=== PATIENT | male | born 1945 | race Caucasian/White ===

== ENCOUNTER 2019-04-16 06:54 | Day surgery (SDC) | payer MEDICARE ==
[2019-04-16] MEDS ORDERED: LIDOCAINE 2% MDV (20MG/ML) 20ML VIAL IV ONE (06:55)
[2019-04-16] MEDS ORDERED: PROPOFOL 10 MG/ML VIAL IV ONE (06:55)
--- NOTE | 2019-04-19 12:30 | Operative Note ---
DATE OF SERVICE: 04/16/2019. DATE OF SURGERY: 04/16/2019. REQUESTING PROVIDER: Isaiah Winslow DO. SURGEON: Fran Becerra MD. OPERATION: COLONOSCOPY. INDICATION FOR PROCEDURE: This is a 73-year-old male with history of colon polyps. Last colonoscopy was about 6 years ago, who presented for surveillance colonoscopy. POSTOPERATIVE DIAGNOSES: 1. A 3 mm size rectal polyp that was removed by cold biopsy forceps. 2. Otherwise normal colon. SEDATION: Sedation is per Anesthesia. Pulse oximetry was monitored throughout the duration of the procedure to maintain O2 saturation of 90% or greater. Supplemental oxygen was administered via nasal cannula. Cardiac and vital signs were monitored throughout the duration of the procedure and were stable. PROCEDURE: The procedure of colonoscopy, risks and alternatives to the procedure, including the risks of bleeding and perforation, among others, were explained to the patient, who voiced understanding and agreed to have the procedure done. Physical examination was performed, and the patient was found stable for sedation. The patient was then placed in the left lateral position and sedation was initiated. Digital rectal exam was performed and showed small external hemorrhoids but no palpable rectal masses. A lubricated Olympus PCF1 80AL colonoscope was then inserted into the rectum and under direct visualization was advanced to the cecum without difficulty. The ileocecal valve and appendiceal orifice were identified and photographed. The colonic mucosa was carefully examined upon introduction of the colonoscope. There were no lesions noted. The colonoscope was then withdrawn very carefully, re-examining the colonic mucosal surfaces. The bowel preparation was good. There were no lesions noted. In the rectum, however, was a 3 mm size polyp that was removed by cold biopsy forceps. Retroflexion maneuver revealed no lesions. The colonoscope was then withdrawn and the procedure was terminated. The patient tolerated the procedure well without immediate complications. He remained in stable vital signs and was transferred to the recovery room. PLAN AND RECOMMENDATIONS: 1. Patient should be on a high fiber diet. 2. He is to have a repeat colonoscopy for surveillance in 5 years. Thank you for allowing me to participate in the care of your patient. JAMIL
== END 2019-04-16 08:50 | disposition home or self-care (01) ==
LOC: HOP 06:54
PROVIDERS: ATTEND Internal Medicine Gastroenterology
DX: Z12.11 Encounter for screening for malignant neoplasm of colon (principal); Z86.010 Personal history of colon polyps; K62.1 Rectal polyp; I10 Essential (primary) hypertension; E03.9 Hypothyroidism, unspecified; E78.00 Pure hypercholesterolemia, unspecified